=== PATIENT | male | born 1945 | race Caucasian/White ===

== ENCOUNTER 2019-04-08 12:23 | Inpatient (IN) ==
[2019-04-08] MEDS ORDERED: Albuterol 2.5 MG/3 ML NEBULIZER IH ONE (12:56)
[2019-04-08] MEDS ORDERED: CeFAZolin Syr 3,000MG/30 ML 3,000 MG/30 ML SYRINGE IVPB ONE (12:56)
[2019-04-08] MEDS ORDERED: Ringers Solution, Lactated 1,000 ML IVC SCH (13:00)
[2019-04-08] MEDS ORDERED: *HR* Propofol 200 MG/20 ML VIAL IVP ONE (17:04)
[2019-04-08] MEDS ORDERED: *HR* FentaNYL (PF) 100 MCG/2 ML VIAL ONE ×2 (17:04→18:32)
[2019-04-08] MEDS ORDERED: Lidocaine -MPF 2% 2 ML VIAL ONE (17:07)
[2019-04-08] MEDS ORDERED: Dexamethasone 4 MG/ML VIAL ONE (17:10)
[2019-04-08] MEDS ORDERED: Ondansetron 4 MG/2 ML VIAL ONE (17:10)
--- NOTE | 2019-04-08 17:22 | Anesthesia Evaluation PreOp ---
Date of Encounter: 04/08/19 Time of Encounter: 17:20 - Past History Planned Operation: Robotic diaglaparoscopy, pos ex lap, excision abd mass Cardiac History: HTN, Hyperlipidemia Pulmonary History: Smoker (occasional cigar), Asthma (childhood) RN STAFFING History: Denies Any Significant HX Other Medical History: Diabetes Type II (oral medications only), Other (BMI 39) Anesthesia History: No Prior Anesthetic Complications, Past Anesthesia (colonoscopy, cataract surgery bilaterally) Alcohol Use: none Drug use: none Medications and Allergies Aspirin [Adult Aspirin Regimen] 81 mg PO DAILY 04/08/19 [History] Atorvastatin [Lipitor] 40 mg PO HS 04/08/19 [History] GlipiZIDE XL (24 HR) [Glucotrol XL] 10 mg PO DAILY 04/08/19 [History] Linagliptin [Tradjenta] 5 mg PO DAILY 04/08/19 [History] Lisinopril [Zestril] 10 mg PO DAILY 04/08/19 [History] Metformin HCl 1,000 mg PO BID 04/08/19 [History] Multivitamin [One Daily Essential] 1 tab PO DAILY 04/08/19 [History] Tamsulosin [Flomax] 0.4 mg PO DAILY 04/08/19 [History] Allergy/AdvReac Type Severity Reaction Status Date / Time No Known Allergies Allergy Verified 04/08/19 13:25 - Meds/Allergy Pre-op Review Medications Reviewed: Yes Allergies Reviewed: Yes Beta Blockers on Current Med List: No Anesthesia Results - Labs Laboratory Tests 04/04/19 04/04/19 04/08/19 10:38 10:38 13:02 WBC 7.2 Hgb 12.7 L Hct 39.1 Plt Count 247 POC Glucose 111 H Est Mean Plasma Glucose 143 Hemoglobin A1c 6.6 H - Imaging EKG: report reviewed, image reviewed (SR) Anesthesia Exam Last Vital Signs Temp 98.0 F 04/08/19 13:24 Pulse 64 04/08/19 13:24 Resp 18 04/08/19 13:24 BP 132/78 04/08/19 13:24 Pulse Ox 98 04/08/19 13:24 Weight: 122 kg NPO (# of Hours): > 8 hrs - HEENT Pupil (Motor): Pupils equal, EOMI Mallampati: III Teeth: Normal Oral Opening: Greater than 3 - RN STAFFING LOC: Oriented - Cardiac Rhythm: Regular Murmur: None - Pulmonary Breath Sounds: bilateral Clear Respiratory Effort: Symmetrical Anesthesia Assess/Plan ASA Score: 3 Level of consciousness: Cooperative Anesthetic Plan: General Monitoring Plan: Standard Monitors Recovery Plan: PACU
[2019-04-08] MEDS ORDERED: *HR* OxyCODONE Immed Rel 5 MG TABLET PO PRN ×2 (17:23→21:12)
[2019-04-08] MEDS ORDERED: Acetaminophen IV 1,000 MG/100 ML INFUS..BTL IVPB ONE (17:23)
[2019-04-08] MEDS ORDERED: *HR* Promethazine 25 MG/ML VIAL IVP PRN ×2 (17:23→21:12)
[2019-04-08] MEDS ORDERED: Lidocaine -MPF 4% 5 ML AMPUL ONE (17:26)
--- NOTE | 2019-04-08 17:27 | History & Physical Report ---
Date of Encounter: 04/08/19 Time of Encounter: 17:26 24 Hour HP Update - Instructions Instructions: If the History and Physical is less than 30 days old and was completed prior to A.M. admission and or procedure and has NOT been updated on calendar day of procedure please complete this update prior to performing procedure. - Update Patient reports changes in Medical Condition: No Changes in examination, assessment, or condition: No Changes in Medication: No Preop tests/diagnostics Reviewed: Yes Surgery Remains Indicated: Yes Consent for Planned Operative Procedure(s) Verified: Yes - Pre-Operative Checklist Preoperative Checklist Indicated: Yes Prophylactic Antibiotic Ordered: Yes Home Medications Include Beta Josué: No Beta Josué Taken Today (Day of Surgery): No Beta Josué Taken Yesterday (Day Prior to Surgery): No Is VTE Prophylaxis Indicated?: Yes - Attending Attestation patient seen and examined. no changes in patient health since last evaluation; okay to proceed with surgery
[2019-04-08] MEDS ORDERED: EPHEDrine 50 MG/ML VIAL ONE (17:31)
[2019-04-08] MEDS ORDERED: *HR* Midazolam HCl 2 MG/2 ML VIAL ONE ×2 (17:39→21:14)
[2019-04-08] MEDS ORDERED: Acetaminophen IV 1,000 MG/100 ML INFUS..BTL ONE (18:42)
[2019-04-08] MEDS ORDERED: *HR* HYDROMORPHONE 2 MG/ML VIAL ONE (18:58)
[2019-04-08] MEDS ORDERED: *HR* Rocuronium Bromide 50 MG/5 ML VIAL ONE (19:31)
[2019-04-08] MEDS ORDERED: ROPIVACAINE/PF/NS 0.25% 1 EACH SYRINGE INTRAART ONE (20:21)
--- NOTE | 2019-04-08 21:08 | Anesthesia Procedures ---
Date of Encounter: 04/08/19 Time of Encounter: 20:50 Procedures: Anesthesia - Nerve Block Procedure Date: 04/08/19 Time: 20:50 Surgical Procedure: open belly case Checklist: Correct Patient Identifier, Correct procedure, History checked Monitor Applied: EKG, BP, Pulse Oximetry Indication: Post Op Analgesia Pre-op Neuro Deficits: No Block Type: Other (TAP bilateral mid-axillary and subcostal ) Catheter placed: No Sterile Technique: Yes Ultrasound used: Yes Anatomy identified: Yes Visual spread of Local: Yes Blood on Needle Aspiration: No Smooth Injection of Local: Yes Pain with Injection of Local: No Prep: Chlorhexadine Needle: 21 x 100 mm Stimuplex (x4) Local: Ropivacaine (0.25% ropivacaine 25 ml for midaxillary x2, 0.25% ropi. 20 ml for subcostal x2), Other Volume (cc): 110 ml total of 0.25%ropi Number of Attempts: 1 Complications: None/effective block Vitals: Vital Signs/O2 Sat, Most Current Temp Pulse Resp BP Pulse Ox 98.0 F 64 18 132/78 98 04/08/19 13:24 04/08/19 13:24 04/08/19 13:24 04/08/19 13:24 04/08/19 13:24
[2019-04-08] MEDS ORDERED: *HR* HYDROmorphone (PF) 1 MG/ML SYRINGE IVP PRN (21:12)
[2019-04-08] MEDS ORDERED: *HR* Midazolam HCl 2 MG/2 ML VIAL IVP PRN (21:12)
[2019-04-08] MEDS ORDERED: Ondansetron 4 MG/2 ML VIAL IVP ONE (21:12)
[2019-04-08] MEDS ORDERED: *HR* Labetalol 20 MG/4 ML SYRINGE IVP PRN (21:12)
--- NOTE | 2019-04-08 21:15 | Anesthesia Evaluation Post Op ---
Date of Encounter: 04/08/19 Time of Encounter: 21:50 - Vital Signs Vital Signs: Vital Signs/O2 Sat, Most Current Temp Pulse Resp BP Pulse Ox 98.1 F 96 18 164/88 98 04/08/19 21:35 04/08/19 21:45 04/08/19 21:45 04/08/19 21:45 04/08/19 21:45 - Lungs Lungs: Clear Ascult./Percussion - Airway Airway: Non-obstructed - Cardiovascular Regular Rate - Mental Status Mental Status: Alert & Oriented, Answers Appropriately - Pain Pain Scale: 1 Pain Scale used: Numeric (1 - 10) - Nausea Vomiting Nausea Vomiting: Not Present - Hydration Hydration: NPO, Has not voided - Discharge PostOp Status: Transfer Patient to floor
--- NOTE | 2019-04-08 21:45 | Operative Note ---
Date of procedure: 04/08/19 Pre-op diagnosis: abdominal mass Post-op diagnosis: other (mesenteric mass) Procedure: robotic converted to open exploration small bowel resection Implants: none Complications: none Anesthesia: GETA Surgeon: Reza Pacheco Was there an lead assistant manager present: Yes Director Experimental Medicine: Pooja Dobbs Estimated blood loss (cc): 10 Specimen: small bowel Condition: stable Disposition: PACU Procedure in Detail: The patient was brought into the operating room suite. Positioned supine. Mechanical DVT prophylaxis was applied. The patient underwent smooth induction of anesthesia. The patient was prepped and draped in the usual fashion. Preoperative antibiotics were given. A timeout was held identifying correct patient, pathology, procedure, and physician. I started by creating 3 incision along the subxiphoid region. The middle incision was 12mm to accomodate the robotic camera and port. Using open Najma technique I entered the abdomen through the 12mm incision. Using a vicryl on a UR-6 needle, I was able to reapproximate, but did not close, the fascia. I then inserted the camera port followed by the camera and created two 8mm incisions one handbreadth to the left and right of the 12mm incision. Under direct visualization, I inserted the ports for my working arms. I then docked the robot in the usual fashion, broke scrub, and went to the robotic console. I started along the Right lower quadrant, found the cecum and began to run the bowel proximal. Around the mid jejunum I noted there was a segment of small bowel that was hard, non pliable, discolored white. I was not able to appreciate the location of the mesenteric mass found on the CT scan. The decision was made to open for a complete exploration. I first used a epi instrument to locate the small bowel abnormality. I undocked the robot, used the electrocautery/bovie to dissect through the subcutaneous tissue to enter the abdomen. I then found the epi, immediately found the small bowel where it was most abnormal. I decided to run the bowel. The bowel was normal, but found an area, near the epi that was hard and abnormal within the mesentery. This coincided with the CT finding and was likely the location where the small bowel was adhered leading to the hardened, discoloration seen on exam. I then resected the small bowel segment (3cm in size) in the usual fashion and created a stapled side to side anastamsosis. I then closed the fascia with a looped PDS in a running fashion. I then closed the skin with curt and applied the naveed dressing. the patient tolerated the procedure well without issue.
[2019-04-08] MEDS ORDERED: Dextrose Gel 15 GM/37.5 ML TUBE PO PRN ×2 (22:01)
[2019-04-08] MEDS ORDERED: D5% in Water 1,000 ML IVC PRN (22:01)
[2019-04-08] MEDS ORDERED: *HR* Dextrose 50 % in Water (Syg) 50 ML SYRINGE IVP PRN (22:01)
[2019-04-08] MEDS: Morphine PCA 30 MG/ 30 ML 30 ML PCA.VIAL IVC PRN (22:32)
[2019-04-08] MEDS: 0.9 % Sodium Chloride 1,000 ML IVC SCH (22:43)
[2019-04-08] MEDS: Insulin LISPRO 300 UNITS/3 ML VIAL SQ SCH (23:50)
[2019-04-09 05:13] LABS: BUN/Creatinine Ratio 17 (6-26); Blood Urea Nitrogen 17 mg/dL (8-23); Calcium 8.8 mg/dL (8.6-10.3); Carbon Dioxide 22 mEq/L (23-29); Chloride 105 mEq/L (98-107); Glucose 208 mg/dL (70-105); Magnesium 1.4 mg/dL (1.6-2.6); Osmolality,Calculated 292 (280-300); Phosphorous 3.1 mg/dL (2.7-4.5); Potassium 4.5 mEq/L (3.5-5.1); Sodium 137 mEq/L (136-145); eGFR For African Americans > 60 (> 60); eGFR For Non-African Americans > 60 (> 60)
[2019-04-09] MEDS: *HR* Heparin 5,000 UNIT/ML VIAL SQ SCH ×2 (05:55→19:08)
[2019-04-09] MEDS: Insulin LISPRO 300 UNITS/3 ML VIAL SQ SCH ×3 (05:55→18:55)
[2019-04-09] MEDS: 0.9 % Sodium Chloride 1,000 ML IVC SCH ×2 (08:57→19:08)
[2019-04-09] MEDS: Morphine PCA 30 MG/ 30 ML 30 ML PCA.VIAL IVC PRN (09:25)
--- NOTE | 2019-04-09 14:14 | General Surgery Progress Note ---
<Inna Clark - Last Filed: 04/09/19 14:31> Date of Encounter: 04/09/19 Time of Encounter: 14:10 - Assessment and Plan (1) Mesenteric mass Current Visit: Yes Status: Acute Postop day 1 robotic converted to open exploration, small bowel resection for mesenteric mass Discontinue NG tube Continue IV normal saline 100 mL per hour until patient regains bowel function and progresses diet Begin clear liquid diet Pain control-discontinue morphine SU[employer], begin sublingual oxycodone Increase activity, out of bed to bedside Incentive spirometry Continue to monitor labs, replace electrolytes as needed Await return of bowel function (2) Diabetes mellitus Current Visit: Yes Status: Acute History of diabetes mellitus Continue sliding scale insulin May need to increase coverage as patient progresses diet Qualifiers: Diabetes mellitus type: type 2 Diabetes mellitus terminal system operator insulin use: without terminal system operator use Diabetes mellitus complication status: without complication Qualified Code(s): E11.9 - Type 2 diabetes mellitus without complications (3) Hypertension Current Visit: Yes Status: Acute Controlled Continue home medication lisinopril Qualifiers: Hypertension type: essential hypertension Qualified Code(s): I10 - Essential (primary) hypertension (4) Hyperlipidemia Current Visit: Yes Status: Acute Continue home medication atorvastatin Qualifiers: Hyperlipidemia type: unspecified Qualified Code(s): E78.5 - Hyperlipidemia, unspecified (5) DVT prophylaxis Current Visit: Yes Status: Acute Subcutaneous heparin Subjective Narrative: Patient seen and examined at bedside today. He is postop day 1 for robotic converted to open exploration and small bowel resection for a mesenteric mass. He states that he is doing well, his pain is controlled. Will wean off [employer] and begin sublingual oxycodone. Denies nausea, vomiting, fever, chills, chest pain, shortness breath. He has not yet passed flatus. Objective Vital Signs - Last 8 Hours Temp Pulse Resp BP Pulse Ox 04/09/19 12:31 98.3 F 73 15 103/63 94 04/09/19 07:52 98.0 F 78 16 108/65 94 Intake and Output 04/08/19 04/09/19 04/09/19 23:59 07:59 15:59 Intake Total 1180 / 1180 Output Total 750 / 1025 275 / 1025 Balance -750 / 155 905 / 155 Intake: IV Fluids 1000 / 1000 0.9 % Sodium Chloride 1,000 ML 1000 / 1000 @ 100 mls/hr IVC .Q10H [facility] Rx#: [id number] Ancef Syringe 3,000 MG/30 ML 3, 30 / 30 000 mg In 30 ml @ 200 mls/hr IVPB PREOP ONE Rx#:[id number] Oral 180 / 180 Output: Urine 750 / 1025 275 / 1025 Gastric Tube Lavage Amount 0 / 0 Right Nare 0 / 0 Estimated Blood Loss Other: Meal NPO Blood Glucose* 220 214 128 - General physical appearance well developed, well nourished, no distress, obese - Eyes PERRL, normal ocular movement - ENT normal mucosa, no congestion - Neck Neck exam: trachea midline, no venous distension - Respiratory normal expansion, normal respiratory effort, clear to auscultation - Cardiovascular Cardiovascular exam: Present: RRR, no murmurs/rubs/gallops. Absent: JVD - Abdomen Abdomen: Present: bowel sounds present (Hypoactive), soft, tender. Absent: distended Abdominal Tenderness: diffusely (Appropriate, expect is secondary to surgery) - Incision Incision: Present: clean and dry, intact (Ashok dressing in place, no erythema around dressing.) - Integumentary no rash, no abnormal pigmentation - Neurologic CN 2-12 grossly intact, normal coordination, normal sensation - Musculoskeletal normal posture - Psychiatric oriented to time, oriented to person, oriented to place, speech is normal, memory intact - Labs 04/09/19 04:15 Diabetes panel 04/09/19 Range/Units 04:15 Sodium 137 (136-145) mEq/L Potassium 4.5 (3.5-5.1) mEq/L Chloride 105 (98-107) mEq/L Carbon Dioxide 22 L (23-29) mEq/L BUN 17 (8-23) mg/dL Creatinine 0.99 (0.70-1.30) mg/dL Glucose 208 H (70-105) mg/dL Calcium 8.8 (8.6-10.3) mg/dL Calcium panel 04/09/19 Range/Units 04:15 Calcium 8.8 (8.6-10.3) mg/dL Phosphorus 3.1 (2.7-4.5) mg/dL Pituitary panel 04/09/19 Range/Units 04:15 Sodium 137 (136-145) mEq/L Potassium 4.5 (3.5-5.1) mEq/L Chloride 105 (98-107) mEq/L Carbon Dioxide 22 L (23-29) mEq/L BUN 17 (8-23) mg/dL Creatinine 0.99 (0.70-1.30) mg/dL Glucose 208 H (70-105) mg/dL Calcium 8.8 (8.6-10.3) mg/dL Adrenal panel 04/09/19 Range/Units 04:15 Sodium 137 (136-145) mEq/L Potassium 4.5 (3.5-5.1) mEq/L Chloride 105 (98-107) mEq/L Carbon Dioxide 22 L (23-29) mEq/L BUN 17 (8-23) mg/dL Creatinine 0.99 (0.70-1.30) mg/dL Glucose 208 H (70-105) mg/dL Calcium 8.8 (8.6-10.3) mg/dL Consult Discharge Plan - Plan Referrals: June Bronson [Primary Care Provider] - Anyi Riggins CNP [Advanced Practice Nurse] - 05/06/19 9:15 am <Hailee Benton - Last Filed: 04/09/19 20:13> Date of Encounter: 04/09/19 Objective Vital Signs - Last 8 Hours Temp Pulse Resp BP Pulse Ox 04/09/19 15:49 98.3 F 70 16 114/61 91 04/09/19 12:31 98.3 F 73 15 103/63 94 Intake and Output 04/09/19 04/09/19 04/09/19 07:59 15:59 23:59 Intake Total 1180 / 2700 1520 / 2700 Output Total 750 / 1025 275 / 1025 Balance -750 / 1675 905 / 1675 1520 / 1675 Intake: IV Fluids 1000 / 1999 1000 / 2000 0.9 % Sodium Chloride 1,000 ML 1000 / 1999 1000 / 2000 @ 100 mls/hr IVC .Q10H [facility] Rx#: [id number] Oral 180 / 700 520 / 700 Output: Urine 750 / 1025 275 / 1025 Gastric Tube Lavage Amount 0 / 0 Right Nare 0 / 0 Other: Meal NPO Blood Glucose* 214 128 134 - Labs 04/09/19 04:15 Diabetes panel 04/09/19 Range/Units 04:15 Sodium 137 (136-145) mEq/L Potassium 4.5 (3.5-5.1) mEq/L Chloride 105 (98-107) mEq/L Carbon Dioxide 22 L (23-29) mEq/L BUN 17 (8-23) mg/dL Creatinine 0.99 (0.70-1.30) mg/dL Glucose 208 H (70-105) mg/dL Calcium 8.8 (8.6-10.3) mg/dL Calcium panel 04/09/19 Range/Units 04:15 Calcium 8.8 (8.6-10.3) mg/dL Phosphorus 3.1 (2.7-4.5) mg/dL Pituitary panel 04/09/19 Range/Units 04:15 Sodium 137 (136-145) mEq/L Potassium 4.5 (3.5-5.1) mEq/L Chloride 105 (98-107) mEq/L Carbon Dioxide 22 L (23-29) mEq/L BUN 17 (8-23) mg/dL Creatinine 0.99 (0.70-1.30) mg/dL Glucose 208 H (70-105) mg/dL Calcium 8.8 (8.6-10.3) mg/dL Adrenal panel 04/09/19 Range/Units 04:15 Sodium 137 (136-145) mEq/L Potassium 4.5 (3.5-5.1) mEq/L Chloride 105 (98-107) mEq/L Carbon Dioxide 22 L (23-29) mEq/L BUN 17 (8-23) mg/dL Creatinine 0.99 (0.70-1.30) mg/dL Glucose 208 H (70-105) mg/dL Calcium 8.8 (8.6-10.3) mg/dL - Attending Attestation I examined this patient and my medical decision-making was reviewed with the Resident Physician. I agree with the documented findings, disposition and treatment plan as described except to the extent set forth below. POD#1 SBR for mesenteric mass. He really has no complaints. Pain is very well controlled, no longer using SU[employer]. SUPER[employer] dc'd and PO pain meds started. NGT dc'd and clear liquid diet started. Encourage IS and ambulation.
[2019-04-09] MEDS ORDERED: Pantoprazole 40 MG VIAL IVP STA (15:41)
[2019-04-10] MEDS: Insulin LISPRO 300 UNITS/3 ML VIAL SQ SCH ×4 (00:47→17:39)
[2019-04-10 05:11] LABS: BUN/Creatinine Ratio 15 (6-26); Blood Urea Nitrogen 15 mg/dL (8-23); Calcium 8.5 mg/dL (8.6-10.3); Carbon Dioxide 25 mEq/L (23-29); Chloride 103 mEq/L (98-107); Glucose 174 mg/dL (70-105); Magnesium 1.5 mg/dL (1.6-2.6); Osmolality,Calculated 289 (280-300); Phosphorous 2.1 mg/dL (2.7-4.5); Sodium 137 mEq/L (136-145); eGFR For African Americans > 60 (> 60); eGFR For Non-African Americans > 60 (> 60)
[2019-04-10] MEDS: Pantoprazole 40 MG VIAL IVP SCH ×2 (05:28→17:47)
[2019-04-10] MEDS: *HR* Heparin 5,000 UNIT/ML VIAL SQ SCH ×2 (05:28→17:47)
[2019-04-10] MEDS: 0.9 % Sodium Chloride 1,000 ML IVC SCH ×2 (05:34→16:29)
--- NOTE | 2019-04-10 11:42 | AcuteCareSurgery Progress Note ---
<Inna Clark - Last Filed: 04/10/19 11:47> Date of Encounter: 04/10/19 Time of Encounter: 11:40 - Assessment and Plan (1) Mesenteric mass Current Visit: Yes Status: Acute Postop day 2 robotic converted to open exploration, small bowel resection for mesenteric mass Denies flatus, nausea, vomiting Continue IV normal saline 100 mL per hour until patient regains bowel function and progresses diet Progress to soft diet Pain control-sublingual oxycodone GI prophylaxis-Protonix Incentive spirometry Increase activity, increase ambulation down hallway Continue to monitor labs, replace electrolytes as needed Await return of bowel function (2) Diabetes mellitus Current Visit: Yes Status: Acute History of diabetes mellitus Continue sliding scale insulin May need to increase coverage as patient progresses diet Qualifiers: Diabetes mellitus type: type 2 Diabetes mellitus custodial insulin use: without long term care social worker use Diabetes mellitus complication status: without complication Qualified Code(s): E11.9 - Type 2 diabetes mellitus without complications (3) Hypertension Current Visit: Yes Status: Acute Controlled Continue home medication lisinopril Qualifiers: Hypertension type: essential hypertension Qualified Code(s): I10 - Essential (primary) hypertension (4) Hyperlipidemia Current Visit: Yes Status: Acute Continue home medication atorvastatin Qualifiers: Hyperlipidemia type: unspecified Qualified Code(s): E78.5 - Hyperlipidemia, unspecified (5) DVT prophylaxis Current Visit: Yes Status: Acute Subcutaneous heparin Subjective Narrative: Patient seen and examined at bedside today. He is doing well, pain is controlled and he is tolerating liquid diet. Will advance to soft diet today. He is increasing his ambulation. He continues to deny flatus. He denies nausea, vomiting, fever, chills, chest pain, shortness of breath, dysuria, hematuria, calf pain. Objective Vital Signs - Last 8 Hours Temp Pulse Resp BP Pulse Ox 04/10/19 10:51 98.8 F 86 16 120/67 94 04/10/19 07:29 99.8 F H 94 15 124/66 90 04/10/19 04:15 99.7 F H 94 18 124/46 91 Intake and Output 04/09/19 04/10/19 04/10/19 23:59 07:59 15:59 Intake Total 1520 / 2700 1000 / 1000 0 / 1000 Output Total 525 / 1550 445 / 445 Balance 995 / 1150 555 / 555 0 / 555 Intake: IV Fluids 999 / 1999 1000 / 1000 0.9 % Sodium Chloride 1,000 ML 999 / 1999 1000 / 1000 @ 100 mls/hr IVC .Q10H [facility] Rx#: [id number] Oral 520 / 700 0 / 0 0 / 0 Output: Urine 525 / 1550 120 / 120 Catheter 325 / 325 Other: Meal Breakfast Percent of Meal Consumed 0% Blood Glucose* 156 175 - General physical appearance well developed, well nourished, no distress - Eyes PERRL, normal ocular movement - ENT normal nares, normal mucosa, no congestion - Neck Neck exam: no masses, trachea midline, no venous distension - Respiratory normal expansion, normal respiratory effort, clear to auscultation - Cardiovascular Cardiovascular exam: Present: RRR, no murmurs/rubs/gallops. Absent: JVD - Abdomen Abdomen: Present: bowel sounds present (Hypoactive), soft, distended (Mildly), tender. Absent: guarding, rebound Abdominal Tenderness: diffusely (Appropriately tender to palpation) - Incision Incision: Present: clean and dry, intact (Ashok dressing in place, no erythema around dressing.) - Integumentary no rash, no abnormal pigmentation - Neurologic CN 2-12 grossly intact, normal coordination, normal sensation - Musculoskeletal normal posture - Psychiatric oriented to time, oriented to person, oriented to place, speech is normal, memory intact - Labs 04/10/19 04:34 Diabetes panel 04/10/19 Range/Units 04:34 Sodium 137 (136-145) mEq/L Potassium 4.0 (3.5-5.1) mEq/L Chloride 103 (98-107) mEq/L Carbon Dioxide 25 (23-29) mEq/L BUN 15 (8-23) mg/dL Creatinine 0.99 (0.70-1.30) mg/dL Glucose 174 H (70-105) mg/dL Calcium 8.5 L (8.6-10.3) mg/dL Calcium panel 04/10/19 Range/Units 04:34 Calcium 8.5 L (8.6-10.3) mg/dL Phosphorus 2.1 L (2.7-4.5) mg/dL Pituitary panel 04/10/19 Range/Units 04:34 Sodium 137 (136-145) mEq/L Potassium 4.0 (3.5-5.1) mEq/L Chloride 103 (98-107) mEq/L Carbon Dioxide 25 (23-29) mEq/L BUN 15 (8-23) mg/dL Creatinine 0.99 (0.70-1.30) mg/dL Glucose 174 H (70-105) mg/dL Calcium 8.5 L (8.6-10.3) mg/dL Adrenal panel 04/10/19 Range/Units 04:34 Sodium 137 (136-145) mEq/L Potassium 4.0 (3.5-5.1) mEq/L Chloride 103 (98-107) mEq/L Carbon Dioxide 25 (23-29) mEq/L BUN 15 (8-23) mg/dL Creatinine 0.99 (0.70-1.30) mg/dL Glucose 174 H (70-105) mg/dL Calcium 8.5 L (8.6-10.3) mg/dL Consult Discharge Plan - Plan Referrals: June Bronson [Primary Care Provider] - Anyi Riggins CNP [Advanced Practice Nurse] - 05/06/19 9:15 am <Hailee Benton - Last Filed: 04/10/19 13:14> Date of Encounter: 04/10/19 Objective Vital Signs - Last 8 Hours Temp Pulse Resp BP Pulse Ox 04/10/19 10:51 98.8 F 86 16 120/67 94 04/10/19 07:29 99.8 F H 94 15 124/66 90 Intake and Output 04/09/19 04/10/19 04/10/19 23:59 07:59 15:59 Intake Total 1520 / 2700 1000 / 1000 0 / 1000 Output Total 525 / 1550 445 / 445 Balance 995 / 1150 555 / 555 0 / 555 Intake: IV Fluids 1000 / 2000 1000 / 1000 0.9 % Sodium Chloride 1,000 ML 1000 / 2000 1000 / 1000 @ 100 mls/hr IVC .Q10H [facility] Rx#: [id number] Oral 520 / 700 0 / 0 0 / 0 Output: Urine 525 / 1550 120 / 120 Catheter 325 / 325 Other: Meal Breakfast Percent of Meal Consumed 0% Blood Glucose* 156 175 134 - Labs 04/10/19 04:34 Diabetes panel 04/10/19 Range/Units 04:34 Sodium 137 (136-145) mEq/L Potassium 4.0 (3.5-5.1) mEq/L Chloride 103 (98-107) mEq/L Carbon Dioxide 25 (23-29) mEq/L BUN 15 (8-23) mg/dL Creatinine 0.99 (0.70-1.30) mg/dL Glucose 174 H (70-105) mg/dL Calcium 8.5 L (8.6-10.3) mg/dL Calcium panel 04/10/19 Range/Units 04:34 Calcium 8.5 L (8.6-10.3) mg/dL Phosphorus 2.1 L (2.7-4.5) mg/dL Pituitary panel 04/10/19 Range/Units 04:34 Sodium 137 (136-145) mEq/L Potassium 4.0 (3.5-5.1) mEq/L Chloride 103 (98-107) mEq/L Carbon Dioxide 25 (23-29) mEq/L BUN 15 (8-23) mg/dL Creatinine 0.99 (0.70-1.30) mg/dL Glucose 174 H (70-105) mg/dL Calcium 8.5 L (8.6-10.3) mg/dL Adrenal panel 04/10/19 Range/Units 04:34 Sodium 137 (136-145) mEq/L Potassium 4.0 (3.5-5.1) mEq/L Chloride 103 (98-107) mEq/L Carbon Dioxide 25 (23-29) mEq/L BUN 15 (8-23) mg/dL Creatinine 0.99 (0.70-1.30) mg/dL Glucose 174 H (70-105) mg/dL Calcium 8.5 L (8.6-10.3) mg/dL - Attending Attestation I examined this patient and my medical decision-making was reviewed with the Resident Physician. I agree with the documented findings, disposition and treatment plan as described except to the extent set forth below. POD#2 laparotomy for SBR for mesenteric mass. Pt is doing well. Abdomen is soft and with the expected tenderness post-op. +hypoactive BS. Lungs clear. Tolerating clear liquid diet. Advance to fulls. Ambulate. Awaiting bowel function.
[2019-04-11] MEDS: Insulin LISPRO 300 UNITS/3 ML VIAL SQ SCH ×4 (01:00→17:32)
[2019-04-11] MEDS: 0.9 % Sodium Chloride 1,000 ML IVC SCH ×2 (03:03→15:01)
[2019-04-11 04:53] LABS: Basophils % 0.2 %; Eosinophils # 0.1 K/mcL (0.0-0.6); Eosinophils % 1.1 %; Hematocrit 33.3 % (37.5-50.1); Immature Granulocytes % 0.3 % (0-4); Lymphocytes # 1.3 K/mcL (0.6-4.6); Mean Corpuscular HGB Conc 31.8 g/dL (31.6-35.5); Mean Corpuscular Hemoglobin 26.8 pg (28.0-33.3); Mean Corpuscular Volume 84.1 fL (83.0-100.0); Mean Platelet Volume 10.7 fL (9.4-12.4); Monocytes # 1.1 K/mcL (0.0-1.3); Monocytes % 11.8 %; Neutrophils # 6.5 K/mcL (1.6-8.9); Platelet Count 195 K/mcL (140-400); Red Blood Count 3.96 M/mcL (4.19-5.50); Red Cell Distribution Width 13.9 % (11.5-14.5); Segmented Neutrophils % 72.6 %; White Blood Count 8.9 K/mcL (4.3-11.1)
[2019-04-11 04:54] LABS: Hemoglobin 10.6 g/dL (12.9-16.9)
[2019-04-11 05:16] LABS: BUN/Creatinine Ratio 10 (6-26); Blood Urea Nitrogen 9 mg/dL (8-23); Calcium 8.2 mg/dL (8.6-10.3); Carbon Dioxide 26 mEq/L (23-29); Chloride 104 mEq/L (98-107); Glucose 151 mg/dL (70-105); Osmolality,Calculated 286 (280-300); Potassium 3.6 mEq/L (3.5-5.1); Sodium 137 mEq/L (136-145); eGFR For African Americans > 60 (> 60); eGFR For Non-African Americans > 60 (> 60)
[2019-04-11] MEDS: Pantoprazole 40 MG VIAL IVP SCH ×2 (05:48→17:01)
[2019-04-11] MEDS: *HR* Heparin 5,000 UNIT/ML VIAL SQ SCH ×2 (05:49→17:01)
--- NOTE | 2019-04-11 08:22 | General Surgery Progress Note ---
Date of Encounter: 04/11/19 Time of Encounter: 08: - Assessment and Plan (1) Mesenteric mass Current Visit: Yes Status: Acute 73M PMH significant for HTN, DM, obesity mesenteric mass POD # 3 s/p robotic converted to open small bowel resection; AF VSS; cont PO pain meds start bowel regimen (colace, metamucil) okay for current diet, recommend liquids if not having flatus or bowel movements; activity as tolerated IV; SLIV once diet is advanced cont with current abdominal dressing draw mg and phosph - replace if low Subjective Patient reports: no new complaints, feels better, still having pain, pain is les s, tolerating liquids well, no flatus, no bowel movement, afebrile Objective Vital Signs - Last 8 Hours Temp Pulse Resp BP Pulse Ox 04/11/19 07:32 98.3 F 82 16 132/75 91 04/11/19 04:07 98.5 F 81 15 147/69 91 Intake and Output 04/10/19 04/11/19 04/11/19 23:59 07:59 15:59 Intake Total 1500 / 2620 1000 / 1000 Output Total 825 / 825 Balance 1500 / 2175 175 / 175 Intake: IV Fluids 1260 / 2260 1000 / 1000 0.9 % Sodium Chloride 1,000 ML 1000 / 2000 1000 / 1000 @ 100 mls/hr IVC .Q10H MIGUE Rx#: [id number] Sodium Phosphate 30 MMOL In 0.9 260 / 260 % Sodium Chloride 250 ML @ 42 mls/hr IVPB ONCE ONE Rx#: [id number] Oral 240 / 360 Output: Urine 825 / 825 Other: Meal Dinner Percent of Meal Consumed 25% Weight 122.1 kg Blood Glucose* 151 153 Patient Weight 04/11/19 23:59 Weight 122.1 kg - General physical appearance no distress - Respiratory normal expansion, normal respiratory effort - Cardiovascular Cardiovascular exam: Present: RRR - Abdomen Abdomen: Present: soft, tender (appropriately tender) - Incision Incision: Present: clean and dry, intact - Neurologic CN 2-12 grossly intact - Psychiatric oriented to time, oriented to person, oriented to place - Labs 04/11/19 04:15 04/11/19 04:15 Diabetes panel 04/11/19 Range/Units 04:15 Sodium 137 (136-145) mEq/L Potassium 3.6 (3.5-5.1) mEq/L Chloride 104 (98-107) mEq/L Carbon Dioxide 26 (23-29) mEq/L BUN 9 (8-23) mg/dL Creatinine 0.86 (0.70-1.30) mg/dL Glucose 151 H (70-105) mg/dL Calcium 8.2 L (8.6-10.3) mg/dL Calcium panel 04/11/19 Range/Units 04:15 Calcium 8.2 L (8.6-10.3) mg/dL Pituitary panel 04/11/19 Range/Units 04:15 Sodium 137 (136-145) mEq/L Potassium 3.6 (3.5-5.1) mEq/L Chloride 104 (98-107) mEq/L Carbon Dioxide 26 (23-29) mEq/L BUN 9 (8-23) mg/dL Creatinine 0.86 (0.70-1.30) mg/dL Glucose 151 H (70-105) mg/dL Calcium 8.2 L (8.6-10.3) mg/dL Adrenal panel 04/11/19 Range/Units 04:15 Sodium 137 (136-145) mEq/L Potassium 3.6 (3.5-5.1) mEq/L Chloride 104 (98-107) mEq/L Carbon Dioxide 26 (23-29) mEq/L BUN 9 (8-23) mg/dL Creatinine 0.86 (0.70-1.30) mg/dL Glucose 151 H (70-105) mg/dL Calcium 8.2 L (8.6-10.3) mg/dL Consult Discharge Plan - Plan Referrals: June Bronson [Primary Care Provider] - Anyi Riggins CNP [Advanced Practice Nurse] - 05/06/19 9:15 am
[2019-04-11 08:42] LABS: Magnesium 1.7 mg/dL (1.6-2.6); Phosphorous 2.3 mg/dL (2.7-4.5)
[2019-04-12] MEDS: Insulin LISPRO 300 UNITS/3 ML VIAL SQ SCH ×5 (00:40→23:44)
[2019-04-12] MEDS: 0.9 % Sodium Chloride 1,000 ML IVC SCH (01:14)
[2019-04-12] MEDS: Pantoprazole 40 MG VIAL IVP SCH ×2 (05:19→18:37)
[2019-04-12] MEDS: *HR* Heparin 5,000 UNIT/ML VIAL SQ SCH ×2 (05:19→18:36)
[2019-04-12 06:54] LABS: BUN/Creatinine Ratio 8 (6-26); Blood Urea Nitrogen 7 mg/dL (8-23); Calcium 8.4 mg/dL (8.6-10.3); Carbon Dioxide 27 mEq/L (23-29); Chloride 106 mEq/L (98-107); Glucose 155 mg/dL (70-105); Magnesium 1.7 mg/dL (1.6-2.6); Osmolality,Calculated 293 (280-300); Phosphorous 2.9 mg/dL (2.7-4.5); Potassium 3.5 mEq/L (3.5-5.1); Sodium 141 mEq/L (136-145); eGFR For African Americans > 60 (> 60); eGFR For Non-African Americans > 60 (> 60)
--- NOTE | 2019-04-12 08:21 | General Surgery Progress Note ---
Date of Encounter: 04/12/19 Time of Encounter: 08:19 - Assessment and Plan (1) Mesenteric mass Current Visit: Yes Status: Acute 73M PMH significant for HTN, DM, obesity mesenteric mass POD # 4 s/p robotic converted to open small bowel resection; AF VSS; cont PO pain meds start bowel regimen (colace, metamucil) FLD activity as tolerated slow IVF to 50 cont with current abdominal dressing hypomagnesemia - give mg-sulfate Subjective Patient reports: no new complaints, feels better, still having pain, pain is l ess, tolerating liquids well, flatus, afebrile Objective Vital Signs - Last 8 Hours Temp Pulse Resp BP Pulse Ox 04/12/19 06:29 98.0 F 65 14 137/76 93 04/12/19 04:54 97.6 F 59 16 135/72 95 Intake and Output 04/11/19 04/12/19 04/12/19 23:59 07:59 15:59 Intake Total 500 / 3340 1000 / 1000 Output Total 700 / 2425 1600 / 1600 Balance -200 / 915 -600 / -600 Intake: IV Fluids 1000 / 1000 0.9 % Sodium Chloride 1,000 ML 1000 / 1000 @ 100 mls/hr IVC .Q10H [facility]IGUE Rx#: [id number] Oral 500 / 1340 Output: Urine 700 / 2425 1600 / 1600 Other: Meal Clears Weight 127.6 kg Blood Glucose* 130 152 Patient Weight 04/12/19 23:59 Weight 127.6 kg - General physical appearance no distress - Respiratory normal expansion, normal respiratory effort - Cardiovascular Cardiovascular exam: Present: RRR - Abdomen Abdomen: Present: soft, tender (appropriately tender) - Incision Incision: Present: clean and dry, intact - Neurologic CN 2-12 grossly intact - Labs 04/11/19 04:15 04/12/19 05:57 Diabetes panel 04/11/19 04/12/19 Range/Units 04:15 05:57 Sodium 137 141 (136-145) mEq/L Potassium 3.6 3.5 (3.5-5.1) mEq/L Chloride 104 106 (98-107) mEq/L Carbon Dioxide 26 27 (23-29) mEq/L BUN 9 7 L (8-23) mg/dL Creatinine 0.86 0.87 (0.70-1.30) mg/dL Glucose 151 H 155 H (70-105) mg/dL Calcium 8.2 L 8.4 L (8.6-10.3) mg/dL Calcium panel 04/11/19 04/12/19 Range/Units 04:15 05:57 Calcium 8.2 L 8.4 L (8.6-10.3) mg/dL Phosphorus 2.3 L 2.9 (2.7-4.5) mg/dL Pituitary panel 04/11/19 04/12/19 Range/Units 04:15 05:57 Sodium 137 141 (136-145) mEq/L Potassium 3.6 3.5 (3.5-5.1) mEq/L Chloride 104 106 (98-107) mEq/L Carbon Dioxide 26 27 (23-29) mEq/L BUN 9 7 L (8-23) mg/dL Creatinine 0.86 0.87 (0.70-1.30) mg/dL Glucose 151 H 155 H (70-105) mg/dL Calcium 8.2 L 8.4 L (8.6-10.3) mg/dL Adrenal panel 04/11/19 04/12/19 Range/Units 04:15 05:57 Sodium 137 141 (136-145) mEq/L Potassium 3.6 3.5 (3.5-5.1) mEq/L Chloride 104 106 (98-107) mEq/L Carbon Dioxide 26 27 (23-29) mEq/L BUN 9 7 L (8-23) mg/dL Creatinine 0.86 0.87 (0.70-1.30) mg/dL Glucose 151 H 155 H (70-105) mg/dL Calcium 8.2 L 8.4 L (8.6-10.3) mg/dL Consult Discharge Plan - Plan Referrals: June Bronson [Primary Care Provider] - Anyi Riggins CNP [Advanced Practice Nurse] - 05/06/19 9:15 am
[2019-04-12] MEDS ORDERED: D5% in 0.45% NACL w KCl 20 MEQ/1,000 ML MLS IVC SCH (08:30)
[2019-04-12] MEDS: Psyllium 1 PACKET POWD.PACK PO SCH ×3 (08:52→20:47)
[2019-04-12] MEDS: Aspirin Enteric Coated 81 MG Tablet PO SCH (08:52)
[2019-04-13] MEDS: Pantoprazole 40 MG VIAL IVP SCH (05:53)
[2019-04-13] MEDS: Insulin LISPRO 300 UNITS/3 ML VIAL SQ SCH (05:54)
[2019-04-13] MEDS: *HR* Heparin 5,000 UNIT/ML VIAL SQ SCH (05:54)
[2019-04-13 07:26] VITALS: BP 123/70
--- NOTE | 2019-04-13 08:38 | Discharge Summary ---
Orders not resulted at time of discharge: Pending orders 04/08/19 20:32 Surgical Pathology [PTH] Routine Date of Encounter: 04/13/19 Time of Encounter: 08:39 - Discharge Diagnosis (1) Mesenteric mass Priority: Primary Status: Acute Comments: 73M POD #5 s/p robotic conv to open exploration, small bowel resection; tolerating diet, having bowel function, ambulating, voiding on his own, pain controlled okay to discharge follow up per scheduled appointment General Surgery Exam Initial Vital Signs Temp Pulse Resp BP Pulse Ox 98 F 67 18 132/78 98 04/08/19 13:07 04/08/19 13:07 04/08/19 13:07 04/08/19 13:07 04/08/19 13:07 - General physical appearance no distress - Eyes normal ocular movement - Respiratory normal expansion, normal respiratory effort - Cardiovascular Cardiovascular exam: Present: RRR - Abdomen Abdomen general surgery: Present: soft, tender (aappropriately tender) - Incision Incision: Present: clean and dry, intact - Integumentary Integumentary general surgery: Present: warm and dry - Neurologic Present: CN 2-12 grossly intact - Musculoskeletal Present: normal posture - Psychiatric Psychiatric general surgery: Present: A&Ox3 - Hospital Course Hospital course: Mr. Castillo is a 73 year old male Time spent discussing smoking cessation with patient: 3 to 10 minutes - Time Spent with Patient Total time spent providing and/or coordinating discharge services: Greater than 30 minutes - Discharge Medications Prescriptions: New Docusate [Colace] 100 mg PO BID 10 Days #20 capsule OxyCODONE Immed Rel [Roxicodone 5 MG] 5 mg PO Q6HR PRN 7 Days #28 tablet PRN Reason: Pain Continued Aspirin [Adult Aspirin Regimen] 81 mg PO DAILY Atorvastatin [Lipitor] 40 mg PO HS GlipiZIDE XL (24 HR) [Glucotrol XL] 10 mg PO DAILY Linagliptin [Tradjenta] 5 mg PO DAILY Lisinopril [Zestril] 10 mg PO DAILY Metformin HCl 1,000 mg PO BID Multivitamin [One Daily Essential] 1 tab PO DAILY Tamsulosin [Flomax] 0.4 mg PO DAILY Home Medications: Aspirin [Adult Aspirin Regimen] 81 mg PO DAILY 04/08/19 [History] Atorvastatin [Lipitor] 40 mg PO HS 04/08/19 [History] GlipiZIDE XL (24 HR) [Glucotrol XL] 10 mg PO DAILY 04/08/19 [History] Linagliptin [Tradjenta] 5 mg PO DAILY 04/08/19 [History] Lisinopril [Zestril] 10 mg PO DAILY 04/08/19 [History] Metformin HCl 1,000 mg PO BID 04/08/19 [History] Multivitamin [One Daily Essential] 1 tab PO DAILY 04/08/19 [History] Tamsulosin [Flomax] 0.4 mg PO DAILY 04/08/19 [History] Docusate [Colace] 100 mg PO BID 10 Days #20 capsule 04/13/19 [Rx] OxyCODONE Immed Rel [Roxicodone 5 MG] 5 mg PO Q6HR PRN 7 Days #28 tablet 04/13/19 [Rx] Allergies/Adverse Reactions: Allergy/AdvReac Type Severity Reaction Status Date / Time No Known Allergies Allergy Verified 04/08/19 13:25 Date of admission: 04/08/19 22:14 Primary care physician: June Bronson Discharging clinician: Reza Pacheco Anticipated date of discharge: 04/13/19 Labs on day of discharge: Labs from last 24 hours 04/13/19 04/12/19 04/12/19 05:39 17:22 11:44 POC Glucose 161 H 141 H 154 H - Patient Status Disposition: Home, Self-Care Condition: Good Functional capacity at discharge: independent ambulation Overall status at discharge: patient is progressing back to baseline - Discharge Instructions Follow Up With: June Bronson [Primary Care Provider] - Anyi Riggins CNP [Advanced Practice Nurse] - 05/06/19 9:15 am Additional Instructions: Pain Narcotics are prescribed. take 1-2 tabs q6hrs as needed. If they are not needed, you can use tylenol and ibuprofen, alternating every 6 hrs for pain. If you choose the non-narcotic option, please take the tylenol and ibuprofen re gimen around the clock, whether you feel pain or not. Please use stool softner if you take the narcotics. Do NOT drive while taking narcotics. Activity Please limit activity to no strenuous activity/exercise, no lifting more than 20lbs until seen at your 2 week appointment. Additional instructions will be given then. Diet As tolerated. Incisions Apply guaze and tape daily for the next 48hrs; afterwards, only apply if there is drainage; In addition, you should some expect drainage for the first 48hrs. It should decrease as the days go on. Warnings If you begin to experience severe abdominal pain, poor food tolerance characterized by nausea and vomiitng, inability to have a bowel movement, severe diarrhea, redness of your incisions, purulent (pus-like) drainage, or opening of your incisions, or if you experience any fevers, chills, chest pain, shortness of breath, or any symptoms you feel warrants an evaluation, please call the office and await instructions or report to the closest emergency department or [facility] or report to the emergency department here at [place]. Thank you for allowing me to take care of you! - Diet and Activity Activity: increase activity as tolerated Diet: advance to your usual diet
[2019-04-13] MEDS: Aspirin Enteric Coated 81 MG Tablet PO SCH (09:04)
[2019-04-13] MEDS: Psyllium 1 PACKET POWD.PACK PO SCH (09:04)
== END 2019-04-13 11:58 | disposition home or self-care (01) | DRG 331 ==
LOC: SAMDAY 12:23 → 3ANU 12:23
PROVIDERS: ADMIT Surgery; ATTEND Surgery